=== PATIENT | female | born 1950 | race Caucasian/White ===

== ENCOUNTER 2016-08-31 10:34 | Inpatient (IN) | payer BC ==
[2016-08-31] MEDS ORDERED: Temazepam 15 MG Cap PO PRN (14:01)
[2016-08-31] MEDS ORDERED: Ondansetron 4 MG Tab.DIS PO PRN (14:01)
[2016-08-31] MEDS ORDERED: Calcium Carbonate 500 MG Tab.Chew PO PRN (14:01)
[2016-08-31] MEDS ORDERED: Sodium Chloride 0.9% 10 ML Syringe FLUSH PRN (14:01)
[2016-08-31] MEDS ORDERED: ALPRAZolam 0.25 MG Tab PO PRN (14:08)
[2016-08-31 14:37] LABS: CHLORIDE,CL 106 mEq/L (98-106); SODIUM,NA 142 mEq/L (136-145)
[2016-08-31] MEDS: Levofloxacin/Dextrose 5%-Water 500 MG in Premix Bag 1 BAG IV SCH (15:09)
[2016-08-31] MEDS ORDERED: Mupirocin Oint 22 GM Tube TOP SCH (20:00)
[2016-08-31] MEDS: Cyclobenzaprine 10 MG Tab PO SCH (20:05)
[2016-08-31] MEDS: Enoxaparin 40 MG/0.4 ML Syringe SUBCUT SCH (20:06)
[2016-08-31] MEDS: NEBIVOLOL HCL 10 MG PO SCH (20:07)
[2016-08-31] MEDS: Sertraline 25 MG Tab PO SCH (20:08)
[2016-08-31] MEDS ORDERED: Acetaminophen/HYDROcodone 325-5 MG Tab PO PRN (20:15)
[2016-08-31] MEDS: Ketorolac 30 MG/ML SDV IVPUSH PRN (21:38)
[2016-09-01] MEDS: Pantoprazole 40 MG Tab.CR PO SCH (06:51)
[2016-09-01] MEDS: Ketorolac 30 MG/ML SDV IVPUSH PRN ×2 (06:51→12:52)
[2016-09-01] MEDS: Folic Acid 1 MG Tab PO SCH (07:21)
[2016-09-01] MEDS: Cholecalciferol (Vitamin D3) 1,000 Unit Tab PO SCH (07:21)
[2016-09-01] MEDS: POLICOSANOL PO SCH (07:22)
[2016-09-01] MEDS ORDERED: NEBIVOLOL HCL 10 MG PO SCH (08:00)
[2016-09-01] MEDS ORDERED: NEBIVOLOL HCL 5 MG PO SCH (08:00)
--- NOTE | 2016-09-01 11:25 | PN ---
DATE: 09/01/2016 S: Odalis Nevarez is in with severe cellulitis in left lower extremity, who came through as an outpatient. O: GENERAL: On examination today, the patient is alert, orientated. Lab work looks pretty good. Mildly elevated liver enzymes, which she has had before. Eric is cleaning her up nicely; we, prior to that, at least another day or two continue the IV Levaquin. SOUTH/DAGMAR /[id number]
[2016-09-01] MEDS: Levofloxacin/Dextrose 5%-Water 500 MG in Premix Bag 1 BAG IV SCH (11:45)
[2016-09-01] MEDS: Enoxaparin 40 MG/0.4 ML Syringe SUBCUT SCH (19:34)
[2016-09-01] MEDS: Cyclobenzaprine 10 MG Tab PO SCH (19:35)
[2016-09-01] MEDS: Sertraline 25 MG Tab PO SCH (19:35)
[2016-09-01] MEDS: NEBIVOLOL HCL 10 MG PO SCH (19:36)
[2016-09-01] MEDS ORDERED: Ibuprofen 200 MG Tab ONE (19:56)
[2016-09-02] MEDS: Ibuprofen 200 MG Tab PO PRN ×3 (03:39→19:48)
[2016-09-02] MEDS: Pantoprazole 40 MG Tab.CR PO SCH (07:15)
[2016-09-02] MEDS: POLICOSANOL PO SCH (07:33)
[2016-09-02] MEDS: Folic Acid 1 MG Tab PO SCH (07:33)
[2016-09-02] MEDS: Cholecalciferol (Vitamin D3) 1,000 Unit Tab PO SCH (07:33)
[2016-09-02] MEDS ORDERED: Bacitracin/Neomycin/Polymyxin B Oint 0.9 GM U/D Packet TOP PRN (09:25)
[2016-09-02] MEDS: Levofloxacin/Dextrose 5%-Water 500 MG in Premix Bag 1 BAG IV SCH (12:10)
[2016-09-02] MEDS: Enoxaparin 40 MG/0.4 ML Syringe SUBCUT SCH (19:45)
[2016-09-02] MEDS: Cyclobenzaprine 10 MG Tab PO SCH (19:45)
[2016-09-02] MEDS: Sertraline 25 MG Tab PO SCH (19:45)
[2016-09-02] MEDS: NEBIVOLOL HCL 10 MG PO SCH (19:46)
[2016-09-03] MEDS: Pantoprazole 40 MG Tab.CR PO SCH (07:32)
[2016-09-03] MEDS: Folic Acid 1 MG Tab PO SCH (07:32)
[2016-09-03] MEDS: POLICOSANOL PO SCH (07:33)
[2016-09-03] MEDS: Cholecalciferol (Vitamin D3) 1,000 Unit Tab PO SCH (07:33)
[2016-09-03] MEDS: Levofloxacin/Dextrose 5%-Water 500 MG in Premix Bag 1 BAG IV SCH (12:04)
[2016-09-03] MEDS: Cyclobenzaprine 10 MG Tab PO SCH (20:02)
[2016-09-03] MEDS: Sertraline 25 MG Tab PO SCH (20:02)
[2016-09-03] MEDS: Ibuprofen 200 MG Tab PO PRN (20:03)
[2016-09-03] MEDS: Enoxaparin 40 MG/0.4 ML Syringe SUBCUT SCH (20:03)
[2016-09-03] MEDS: NEBIVOLOL HCL 10 MG PO SCH (20:05)
[2016-09-04 07:44] VITALS: BP 128/81
[2016-09-04] MEDS: Pantoprazole 40 MG Tab.CR PO SCH (08:08)
[2016-09-04] MEDS: POLICOSANOL PO SCH (08:09)
[2016-09-04] MEDS: Folic Acid 1 MG Tab PO SCH (08:09)
[2016-09-04] MEDS: Cholecalciferol (Vitamin D3) 1,000 Unit Tab PO SCH (08:09)
[2016-09-04] MEDS: Ibuprofen 200 MG Tab PO PRN (11:14)
[2016-09-04] MEDS: Levofloxacin/Dextrose 5%-Water 500 MG in Premix Bag 1 BAG IV SCH (11:16)
--- NOTE | 2016-09-05 08:18 | DISCH ---
HOSPITAL COURSE: Odalis Nevarez is a female who was injured while in [facility] came in with [id number] cellulitis of the left lower extremity. She was in the hospital on IV antibiotics to work with physical therapy. She also had fractured her foot. At the time of discharge, cellulitis was resolving nicely. Wounds looked good. She was up moving around with a walker. Wound culture showed no growth. CBC, panel-8, urinalysis normal. DISPOSITION: The patient now discharged home. DISCHARGE INSTRUCTIONS: Instructed not to work. I will see her on the 09/11 for recheck. DISCHARGE MEDICATIONS: Home medications plus Levaquin 500 daily for 7 days and no Ceftin. DISCHARGE DIAGNOSIS: 1. [id number] CELLULITIS SECONDARY TO INJURY. 2. FRACTURED LEFT FOOT. 3. DEPRESSION. SOUTH/DAGMAR /[id number]
== END 2016-09-04 14:55 | disposition home or self-care (01) | DRG 383 ==
LOC: CC.MS 10:34 → UNDOADMIN 10:34 → CC.MS 14:01
PROVIDERS: ADMIT General Practice; ATTEND General Practice
DX: L03.116 Cellulitis of left lower limb (principal); S92.902A Unspecified fracture of left foot, initial encounter for closed fracture; X58.XXXA Exposure to other specified factors, initial encounter; I10 Essential (primary) hypertension; F32.9 Major depressive disorder, single episode, unspecified; Z82.49 Family history of ischemic heart disease and other diseases of the circulatory system; Z88.1 Allergy status to other antibiotic agents; Z88.6 Allergy status to analgesic agent; Z88.0 Allergy status to penicillin; Z88.2 Allergy status to sulfonamides; Z88.8 Allergy status to other drugs, medicaments and biological substances; Z79.899 Other long term (current) drug therapy
CPT/HCPCS: 36415; 80053; 81001; 83735; 85025; 86140; 87070; 97161-GP; 97597-GP; A9270-GY; J1650; J1885; J1956

== ENCOUNTER 2023-12-15 15:00 | Emergency (ER) | payer MEDICARE, OTHER ==
[2023-12-15 15:23] VITALS: BP 141/89; PULSE 119
[2023-12-15] MEDS: Bisacodyl 10 MG Supp RECTAL ONE (15:51)
[2023-12-15] MEDS ORDERED: fentaNYL 50 MCG/ML SDV IVPUSH ONE (16:40)
== END 2023-12-15 17:02 | disposition home or self-care (01) ==
LOC: CC.ED 15:00
DX: K59.00 Constipation, unspecified (principal); I10 Essential (primary) hypertension; K21.9 Gastro-esophageal reflux disease without esophagitis; Z88.5 Allergy status to narcotic agent; Z88.0 Allergy status to penicillin; Z88.2 Allergy status to sulfonamides; Z88.8 Allergy status to other drugs, medicaments and biological substances; Z79.899 Other long term (current) drug therapy; Z90.49 Acquired absence of other specified parts of digestive tract; Z87.891 Personal history of nicotine dependence
CPT/HCPCS: 99283; A9270